=== PATIENT | male | born 1935 | race Caucasian/White ===

== ENCOUNTER 2017-09-28 18:36 | Observation (INO) | payer MEDICARE, SELFPAY ==
[2017-09-28 19:45] LABS: #Eosinphils 0.3 thou/uL (0.0-0.7); #Lymphocytes 0.6 thou/uL (1.20-3.40); #Monocytes 0.6 thou/uL (0.11-0.59); #Neutrophils 3.7 thou/uL (1.40-6.50); %Basophils 0.9 % (0.0-1.0); %Eosinophils 5.1 % (0.0-10.0); %Lymphocytes 10.8 % (21.0-51.0); %Monocytes 10.6 % (0.0-10.0); %Neutrophils 72.6 % (42.0-75.0); Hemoglobin 12.2 g/dL (14.0-18.0); Mean Corpuscular Hemoglobin 30.6 pg (27.0-31.0); Mean Corpuscular Volume 87.4 fl (80.0-94.0); Mean Platelet Volume 8.7 fL (7.4-10.4); Platelet Count 135 thou/uL (130-400); RBC Distribution Width 13.6 % (11.5-14.5); White Blood Cell (WBC) Count 5.1 thou/uL (4.8-10.8)
--- NOTE | 2017-09-28 19:53 | CT ---
CT OF THE BRAIN WITHOUT CONTRAST: 09/28/17 INDICATION: Headache with left eye vision loss and pain. The patient's left eye vision has returned. COMPARISON: None. FINDINGS: No acute infarct, hemorrhage or hydrocephalus is present. The septum pellucidum and third ventricle a re midline. There are vascular calcifications involving the intracranial arteries. The visualized par anasal sinuses are clear. Mastoid air cells are clear. Skull is intact. IMPRESSION: No acute intracranial abnormality. POS: DANIELLEH
[2017-09-28 20:01] LABS: Anion Gap 12 mmol/L (10-20); BUN (Urea Nitrogen) 29 mg/dL (8.4-25.7); CK (CPK) 58 U/L (30-200); CKMB 1.3 ng/mL (0-6.6); Calc. Creatinine Clearance 0 mL/min (70-130); Calcium 9.5 mg/dL (7.8-10.44); Carbon Dioxide 22 mmol/L (23-31); Chloride 108 mmol/L (98-107); Estimated GFR-MDRD 86; Glucose 108 mg/dL (83-110); Potassium 4.3 mmol/L (3.5-5.1); Sodium 138 mmol/L (136-145); Troponin I Less than 0.010 ng/mL (< 0.028)
[2017-09-28] MEDS ORDERED: Mag-Al 1200 mg/1200 mg/30 ML UDCUP PO PRN (22:56)
[2017-09-28] MEDS ORDERED: Senokot 8.6 MG TAB PO PRN (22:56)
[2017-09-28] MEDS ORDERED: Loperamide HCl 2 MG CAP PO PRN (22:56)
[2017-09-28] MEDS ORDERED: Ondansetron HCl/PF 4 MG/2 ML Vial IVP PRN (22:56)
[2017-09-28] MEDS ORDERED: Labetalol HCl 100 MG/20 ML VIAL SLOW IVP PRN (22:56)
[2017-09-28] MEDS ORDERED: Acetaminophen 325 MG TAB PO PRN (22:56)
[2017-09-28] MEDS ORDERED: hydrALAZINE 20 MG/ML VIAL SLOW IVP PRN (22:56)
[2017-09-28] MEDS ORDERED: Ondansetron ODT 4 MG TAB PO PRN (22:56)
[2017-09-28] MEDS ORDERED: Milk Of Magnesia 30 ML UDCUP PO PRN (22:56)
[2017-09-28 23:27] VITALS: BMI 27.8
--- NOTE | 2017-09-28 23:57 | HP ---
PRIMARY CARE PHYSICIAN: [facility] call admission. REASON FOR ADMISSION: Visual loss. HISTORY OF PRESENT ILLNESS: A 81-year-old male who has underlying history of prostate cancer, who wa s watching TV around 7:00 p.m. and all of suddenly he was not able to see upper half of vision on the left side and that lasted for about 15 minutes and subsequently it was gone. Subsequently, he was a ble to see everything well and he did not have any focal motor or sensory symptoms other than visual loss, only half upper part of his left vision. He did not have any headache. He did not have any ch est pain, palpitation, dizziness. He denied any UTI symptoms. He did not have any similar symptoms in past. He called his primary care physician, who recommended better to check in the emergency room . In the emergency room, they did CT brain, chest x-ray, which was normal. Routine blood test was u nremarkable. The patient was completely neurologically intact when he arrived to the ER. Subsequent ly, he was transferred to our hospital for neuro check and further investigation. REVIEW OF SYSTEMS: The following complete review of systems was negative, unless otherwise mentioned in the HPI or below: Constitutional: Weight loss or gain, ability to conduct usual activities. Sk in: Rash, itching. Eyes: Double vision, pain. ENT/Mouth: Nose bleeding, neck stiffness, pain, te nderness. Cardiovascular: Palpitations, dyspnea on exertion, orthopnea. Respiratory: Shortness of breath, wheezing, cough, hemoptysis, fever or night sweats. Gastrointestinal: Poor appetite, abdom inal pain, heartburn, nausea, vomiting, constipation, or diarrhea. Genitourinary: Urgency, frequenc y, dysuria, nocturia. Musculoskeletal: Pain, swelling. Neurologic/Psychiatric: Anxiety, depressio n. Allergy/Immunologic: Skin rash, bleeding tendency. Please see my HPI for pertinent positive and negatives. All other review of system reviewed and negative except as mentioned in the HPI. PAST MEDICAL HISTORY: History of prostate cancer, treated in the past and now in remission. PAST SURGICAL HISTORY: Right knee replacement and cholecystectomy. PAST PSYCHIATRIC HISTORY: Reviewed and negative. SOCIAL HISTORY: The patient is , lives at home with his . 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 He drinks alcohol socially over weekend. He denies any smoking. He denies any other illicit d rug abuse. FAMILY HISTORY: No strong family history of premature coronary artery disease, stroke or cancer. ALLERGIES: No known drug allergy. CURRENT HOME MEDICATIONS: The patient is not taking any prescribed or non-prescribed medication. EMERGENCY ROOM COURSE: The patient is given aspirin 324 mg. PHYSICAL EXAMINATION: VITAL SIGNS: On arrival, blood pressure 148/78, pulse 74, respiratory rate 20, temperature 97.9, sat uration 96% on room air, weight 105.2 kilograms. GENERAL: The patient is currently alert, awake, in no acute distress. HEAD: Normocephalic, atraumatic. EYES: Pupils are round and reactive to light. Extraocular muscle intact. ENT: Oropharynx within normal limits. Moist mucous membranes, no oral lesion, no pharyngeal erythem a, no exudate. NECK: Supple, no JVD, no thyromegaly, no carotid bruit, no jugular venous distention. LUNGS: Clear to auscultation without any rhonchi or rales. CARDIAC: S1, S2 regular without any murmur. ABDOMEN: Soft and benign without any tenderness. NEUROLOGIC: Currently, the patient is alert, oriented x3. Cranial nerves II-XII intact. Motor 5/5 in all four limbs. Sensation bilaterally symmetrical. Reflexes bilaterally symmetrical. No cerebel lar sign. Plantar bilateral flexor. No focal neurological deficit noted. EXTREMITIES: No edema. Good peripheral pulsation, no calf tenderness. SKIN: No skin rash. HEMATOLOGICAL: No lymphadenopathy. PSYCHIATRIC: Normal affect. SIGNIFICANT LABORATORY DATA: CT brain based on my review, no acute intracranial process. EKG based on my review, first degree AV block, left axis deviation, bifascicular block. CBC: WBC 5.1, hemoglo bin 12.2, platelet of 135. BMP: Sodium 138, potassium 4.3, chloride 108, carbon dioxide 22, anion g ap 12, BUN 29, creatinine 0.86, glucose 108, calcium 9.5, CK 58, CK-MB 1.3, troponin I less than 0.01 0. ASSESSMENT AND PLAN: IMPRESSION: 1. Transient visual loss, upper half of left eye visual field, resolved in 15 minutes, suspected ama urosis fugax. The patient will need MRI brain, echocardiography for further evaluation. We will als o do carotid Doppler to rule out any carotid stenosis. We will check lipid profile tomorrow morning for risk stratification. We will do neuro check and telemetry monitoring. If all investigation is u nremarkable, then we will consider discharging him home tomorrow. Aspirin will be given and Lipitor will be given. Depending upon his vitals, we will decide whether this patient needs any antihyperten sive medication or not. 2. History of prostate cancer, currently under remission. 3. Dyslipidemia. Check lipid profile tomorrow. Continue fish oil 1000 mg p.o. daily and we will al so add Lipitor 20 mg p.o. at bedtime. 4. Deep venous thrombosis prophylaxis not needed because we are expecting discharge in 24 hours. 5. Gastrointestinal prophylaxis, Pepcid 20 mg p.o. b.i.d. 6. Code status: The patient is FULL CODE. The patient's is surrogate decision maker. Disposition plan within 24 hours. Plan of care discussed with the patient and family member at [facility] on the floor.
[2017-09-29] MEDS ORDERED: Aspirin 325 mg Enteric Coated Tablet PO SCH ×2 (08:00→09:00)
[2017-09-29] MEDS ORDERED: Fish Oil 1,000 MG CAP PO SCH (09:00)
[2017-09-29] MEDS ORDERED: Famotidine 20 MG TAB PO SCH (09:00)
--- NOTE | 2017-09-29 10:17 | ULT ---
BILATERAL CAROTID DUPLEX ULTRASOUND WITH SPECTRAL ANALYSIS AND COLOR FLOW EVALUATION: DATE: 09/29/17. HISTORY: Visual loss. FINDINGS: Novak scale, color flow, Doppler evaluation, and spectral analysis of the bilateral carotid arteries i s performed with 2D imaging. No significant atherosclerotic plaque is seen in the internal carotid a rteries bilaterally. There is less than 50% maximal stenosis in the bilateral internal carotid arteries according to peak systolic velocities and the ICA/CCA ratios. Peak systolic velocity in the right ICA is 77.9 cm/s wit h an ICA/CCA ratio of 0.86. Peak systolic velocity in the left ICA is 86.1 cm/s with an ICA/CCA rati o of 1.29. IMPRESSION: No hemodynamically significant stenosis in the bilateral internal carotid arteries. POS: VERONICA
[2017-09-29 12:10] VITALS: BP 120/71; TEMP 97.6
--- NOTE | 2017-09-29 13:30 | MRI ---
MRI OF BRAIN WITHOUT IV CONTRAST: DATE: 09/29/17. HISTORY: Vision loss is left eye that occurred 1 day ago. TIA. COMPARISON: 09/28/17. FINDINGS: A few scattered punctate areas of increased FLAIR and T2 weighted signal intensity are seen in perive ntricular and subcortical white matter which are nonspecific and probably related to mild chronic sma ll-vessel ischemic changes. There is no restricted diffusion seen to suggest an acute infarction. The septum pellucidum and third ventricle are in the midline. The ventricular system is normal in si ze, shape, and position. Appropriate flow voids are demonstrated at the base of the brain. Minimal mucosal thickening is seen in the ethmoidal air cells bilaterally. The orbits and remainder of the skull base have a normal MRI appearance. IMPRESSION: 1. No acute intracranial abnormality is demonstrated. 2. Mild chronic small-vessel ischemic changes. POS: VERONICA
--- NOTE | 2017-09-29 15:17 | DIS ---
DATE OF ADMISSION: 09/28/2017 DATE OF DISCHARGE: 09/29/2017 PRIMARY CARE PHYSICIAN: Dr. Hale in [facility] in [place]. DISCHARGE DIAGNOSES: 1. Transient ischemic attack. 2. Amaurosis fugax. 3. Hyperlipidemia. 4. History of prostate cancer. CONSULTATIONS: None. PROCEDURES: 1. A 2D echocardiogram, EF of 55%-60% structurally normal mitral valve, no MR, aortic valve without stenosis with trace AI and trace TR. 2. MRI of the brain showed chronic microvascular, periventricular white matter disease, but no acute stroke and carotid ultrasound that showed no hemodynamically significant stenoses. HISTORY AND PHYSICAL: Mr. Ayala is a 81-year-old gentleman, who presented to the ER after develop ment of right upper half vision loss while sitting down yesterday. Lasted about 15 minutes, and spon taneously resolved. He came to the emergency department for evaluation. Workup was negative. He wa s placed on observation. We were called. HOSPITAL COURSE: The patient seen and examined by Dr. Carlisle. He was started on aspirin and Lipito r, and MRI, echo, and carotid ultrasounds were obtained and the patient was placed on observation ove rnight. He had no further symptoms. The studies were unremarkable. He was continued on aspirin at discharge as well as Lipitor 20 at bedtime, and these were sent to his pharmacy. PHYSICAL EXAMINATION: The patient was seen and examined on the day of discharge. Discharge plan and disposition were discussed with the patient [id number] at the bedside. DISCHARGE MEDICATIONS: New medications, 1. Aspirin 325 mg p.o. daily. Prescription sent. 2. Lipitor 20 mg p.o. at bedtime. Prescription sent. 3. Patient to continue his fish oil 1000 mg p.o. daily. FOLLOWUP APPOINTMENT: Primary care physician within a week. DISCHARGE CONDITION: Stable. DISPOSITION: Being discharged home via private vehicle. DISCHARGE ACTIVITY: Per cardiopulmonary limits. DISCHARGE DIET: Heart healthy recommended.
[2017-09-29] MEDS ORDERED: Atorvastatin Calcium 20 MG TAB PO SCH (21:00)
--- NOTE | 2017-10-04 13:20 | EKG ---
Test Reason : Blood Pressure : / mmHG Vent. Rate : 068 BPM Atrial Rate : 068 BPM P-R Int : 222 ms QRS Dur : 134 ms QT Int : 448 ms P-R-T Axes : 018 -58 022 degrees QTc Int : 476 ms Sinus rhythm with 1st degree A-V block Right bundle branch block Left anterior fascicular block Bifascicular block Nonspecific T wave abnormality Septal infarct , age undetermined Abnormal ECG Confirmed by ROSEMARY DEAL ([id number]), editor in chief newspaper [employer] ([id number]) on 10/04/2017 1:20:14 PM Referred By: Confirmed By:ROSEMARY DEAL
== END 2017-09-29 15:26 | disposition home or self-care (01) ==
LOC: SCSER 18:36 → 2SE 20:31
PROVIDERS: ADMIT Internal Medicine; ATTEND Internal Medicine
DX: G45.9 Transient cerebral ischemic attack, unspecified (principal); E78.5 Hyperlipidemia, unspecified; Z79.899 Other long term (current) drug therapy; G45.3 Amaurosis fugax; Z79.82 Long term (current) use of aspirin
CPT/HCPCS: 70450; 70551; 80048; 80061; 82550; 82553; 84484; 85025; 93005; 93306; 93880; 99285; G0378; 36415